=== PATIENT | male | born 1940 | race African-American/Black ===

== ENCOUNTER 2018-10-30 11:16 | Emergency (ER) | payer MEDICARE, MEDICAID ==
[~2018-10-30] VITALS: Ht 180.3 cm; Wt 82.0 kg
[2018-10-30 11:37] VITALS: BP 102/69
== END 2018-10-30 13:15 | disposition left against medical advice (07) ==
LOC: ER 11:16
DX: Z53.21 Procedure and treatment not carried out due to patient leaving prior to being seen by health care provider (principal); I11.9 Hypertensive heart disease without heart failure